=== PATIENT | male | born 1955 | race Caucasian/White ===

== ENCOUNTER 2017-01-02 15:32 | Inpatient (IN) | payer OTHER, MEDICAID ==
[~2017-01-02] VITALS: Ht 175.3 cm; Wt 72.6 kg
[2017-01-02 15:32] VITALS: BP 126/79; PULSE 106; RESP 14; TEMP 98.7; O2SAT 98
[2017-01-02] MEDS ORDERED: NACL 0.9% 1,000 ML IV SCH (15:41)
[2017-01-02] MEDS ORDERED: ONDANSETRON HCL 4 MG/2 ML VIAL IVP ONE (15:45)
[2017-01-02] MEDS ORDERED: PIPERACILLIN/TAZO 3.38 GM in D5W 50 ML IV ONE (15:45)
[2017-01-02] MEDS ORDERED: VANCOMYCIN HCL 1,000 MG in D5W 250 ML IV ONE (15:45)
[2017-01-02] MEDS ORDERED: MORPHINE 2 MG/ML INJ. SYRINGE IVP ONE (15:45)
[2017-01-02 16:22] LABS: BASOPHILS # (AUTO) 0.1 K/uL (0.0-0.2); BASOPHILS % (AUTO) 1.1 % (0.0-2.0); EOSINOPHILS # (AUTO) 0.1 K/uL (0.0-0.4); EOSINOPHILS % (AUTO) 0.8 % (0.0-4.0); HEMATOCRIT 36.9 % (36-54); HEMOGLOBIN 12.2 g/dL (14.0-18.0); LYMPHOCYTES # (AUTO) 0.9 K/uL (1.0-5.5); LYMPHOCYTES % (AUTO) 7.1 % (20.5-51.5); MEAN CORPUSCULAR HEMOGLOBIN 29 pg (27-31); MEAN CORPUSCULAR HGB CONC 33 % (32-36); MEAN CORPUSCULAR VOLUME 89 fL (79.0-98.0); MONOCYTES # (AUTO) 0.8 K/uL (0.0-1.0); MONOCYTES % (AUTO) 6.3 % (1.7-9.3); NEUTROPHILS # (AUTO) 10.9 K/uL (1.8-7.7); NEUTROPHILS % (AUTO) 84.7 % (40.0-70.0); PLATELET COUNT (AUTO) 405 K/uL (130-430); RED BLOOD CELL COUNT(AUTO) 4.15 MIL/uL (4.2-6.2); RED CELL DISTRIBUTION WIDTH 14.1 % (9.0-15.0); WHITE BLOOD COUNT (AUTO) 12.8 K/uL (4.8-10.8)
[2017-01-02 16:33] LABS: CALCIUM 9.9 mg/dL (8.4-11.0); CREATININE 1.93 mg/dL (0.55-1.30); POTASSIUM 4.5 mmol/L (3.5-5.1)
[2017-01-02 16:37] LABS: TOTAL BILIRUBIN 0.7 mg/dL (0.0-1.0)
[2017-01-02] MEDS ORDERED: VANCOMYCIN HCL 1000 MG/VIAL IV ONE (18:29)
[2017-01-02] MEDS ORDERED: PIPERACILLIN/TAZOBACTAM 3.375 GM/VIAL (ZOSYN) IV ONE (18:49)
[2017-01-02] MEDS ORDERED: ONDANSETRON HCL 4 MG/2 ML VIAL ONE (18:57)
[2017-01-02] MEDS ORDERED: MORPHINE 2 MG/ML INJ. SYRINGE ONE (18:57)
[2017-01-02] MEDS ORDERED: DEXTROSE 50% JECT 50 ML DISP.SYRIN IVP PRN (19:15)
[2017-01-02] MEDS ORDERED: NACL 0.9% 1,000 ML IV ONE ×2 (19:15)
[2017-01-02] MEDS ORDERED: ONDANSETRON HCL 4 MG/2 ML VIAL IVP PRN (19:30)
[2017-01-02 19:41] VITALS: BP 151/97; PULSE 103; RESP 20; TEMP 98.8; O2SAT 96
[2017-01-02 20:18] VITALS: BP 134/78; PULSE 105; RESP 15; TEMP 99.1; O2SAT 95
[2017-01-02] MEDS ORDERED: PIPERACILLIN/TAZOBACTAM 2.25 GM in NS 50 ML IV ONE (23:00)
[2017-01-03] VITALS: BP 159/73; PULSE 91; RESP 18; TEMP 98.5; O2SAT 95
[2017-01-03] MEDS: TEMAZEPAM 15 MG CAPSULE PO SCH ×3 (00:23→23:57)
[2017-01-03] MEDS: ENOXAPARIN SODIUM 30 MG/0.3 ML SYRINGE SUBCUT SCH ×2 (00:23→21:37)
[2017-01-03 04:28] VITALS: BP 150/74; PULSE 85; RESP 18; TEMP 98.6; O2SAT 96
[2017-01-03 06:54] LABS: BASOPHILS % (AUTO) 0.3 % (0.0-2.0); EOSINOPHILS # (AUTO) 0.3 K/uL (0.0-0.4); EOSINOPHILS % (AUTO) 3.4 % (0.0-4.0); HEMOGLOBIN 10.8 g/dL (14.0-18.0); LYMPHOCYTES # (AUTO) 1.5 K/uL (1.0-5.5); LYMPHOCYTES % (AUTO) 14.3 % (20.5-51.5); MEAN CORPUSCULAR HEMOGLOBIN 30 pg (27-31); MEAN CORPUSCULAR HGB CONC 34 % (32-36); MEAN CORPUSCULAR VOLUME 89 fL (79.0-98.0); MONOCYTES # (AUTO) 1.1 K/uL (0.0-1.0); MONOCYTES % (AUTO) 10.5 % (1.7-9.3); NEUTROPHILS # (AUTO) 7.4 K/uL (1.8-7.7); NEUTROPHILS % (AUTO) 71.5 % (40.0-70.0); PLATELET COUNT (AUTO) 306 K/uL (130-430); RED CELL DISTRIBUTION WIDTH 14.3 % (9.0-15.0); WHITE BLOOD COUNT (AUTO) 10.3 K/uL (4.8-10.8)
[2017-01-03 07:10] LABS: ALBUMIN 2.5 g/dL (3.4-4.8); CALCIUM 9.5 mg/dL (8.4-11.0); CREATININE 1.47 mg/dL (0.55-1.30); POTASSIUM 3.6 mmol/L (3.5-5.1); TOTAL BILIRUBIN 0.7 mg/dL (0.0-1.0); TOTAL PROTEIN, SERUM 7.2 g/dL (6.4-8.3)
[2017-01-03 07:27] LABS: IRON (SERUM) 43 mcg/dL (59-158); TOTAL IRON BIND. CAPACITY 121 ug/dL (250-450)
[2017-01-03 10:34] VITALS: BP 158/92; PULSE 95; RESP 18; TEMP 99; O2SAT 98
[2017-01-03 12:45] VITALS: BP 149/80; PULSE 90; RESP 18; TEMP 98.7; O2SAT 98
[2017-01-03 16:00] VITALS: BP 150/91; PULSE 99; RESP 17; TEMP 96.4; O2SAT 98
[2017-01-03 19:39] VITALS: BP 134/82; PULSE 98; RESP 15; TEMP 99.2; O2SAT 94
[2017-01-03] MEDS: ACETAMINOPHEN 325 MG TABLET PO PRN (23:55)
[2017-01-04 01:24] VITALS: BP 141/85; PULSE 83; RESP 17; TEMP 98.2; O2SAT 99
[2017-01-04 04:13] VITALS: BP 139/81; PULSE 77; RESP 18; TEMP 98; O2SAT 94
[2017-01-04 06:29] LABS: BLOOD, URINE 1+ (NEGATIVE); CLARITY/URINE SL CLOUDY (CLEAR); COLOR,URINE YELLOW (YELLOW); GLUCOSE,URINE 2+ (NEGATIVE); KETONES,URINE 1+ (NEGATIVE); LEUKOCYTE ESTERASE ,URINE NEGATIVE (NEGATIVE); NITRITE, URINE NEGATIVE (NEGATIVE); PROTEIN URINE 1+ (NEGATIVE); UROBILINOGEN,URINE 0.2 (0.2-1.0)
[2017-01-04 06:42] LABS: BILIRUBIN,URINE NEGATIVE (NEGATIVE)
[2017-01-04 06:51] LABS: BACTERIA,URINE MODERATE /HPF (None Seen); URIC ACID CRYSTALS,URINE MANY /HPF (None Seen); WBC,URINE 0-3 /HPF (0-3)
[2017-01-04 06:52] LABS: MUCUS,URINE None Seen /LPF (None Seen)
[2017-01-04] MEDS: BALSAM PERU/CASTOR OIL 60 GM OINT...G. TP SCH (09:00)
[2017-01-04] MEDS ORDERED: PROPOFOL 200MG/ 20ML VIAL (DIPRIVAN) IV ONE (09:01)
[2017-01-04] MEDS ORDERED: METOCLOPRAMIDE HCL 10 MG/2 ML VIAL IVP ONE (09:01)
[2017-01-04] MEDS ORDERED: SEVOFLURANE 15 MIN GAS INH ONE (09:01)
[2017-01-04] MEDS ORDERED: fentaNYL CITRATE/PF 100 MCG/2 ML AMP IVP ONE (09:01)
[2017-01-04] MEDS ORDERED: cefTRIAXone 1 GM IVPB PREMIX 50 ML IV ONE (09:01)
[2017-01-04] MEDS ORDERED: HYDROmorphone 2 MG/ML VIAL IVP PRN (09:15)
[2017-01-04] MEDS ORDERED: LR 1,000 ML IV SCH (09:52)
[2017-01-04] MEDS ORDERED: NALBUPHINE HCL 10 MG/ML AMP IVP PRN (10:00)
[2017-01-04] MEDS ORDERED: fentaNYL CITRATE/PF 100 MCG/2 ML AMP IVP PRN (10:00)
[2017-01-04] MEDS ORDERED: ONDANSETRON HCL 4 MG/2 ML VIAL IVP PRN ×2 (10:00)
[2017-01-04] MEDS ORDERED: ePHEDrine sulfate 50 MG/ML VIAL IVP PRN (10:00)
[2017-01-04] MEDS ORDERED: DIPHENHYDRAMINE INJ 50 MG/ML VIAL IVP PRN (10:00)
[2017-01-04] MEDS ORDERED: NALOXONE HCL 0.4 MG/ML AMP (NARCAN) IVP PRN (10:00)
[2017-01-04 12:00] VITALS: BP 155/98; PULSE 79; RESP 18; TEMP 97.1; O2SAT 98
[2017-01-04 13:07] LABS: FOLATE (FOLIC ACID) 13.4 ng/mL (>3.0)
[2017-01-04 15:13] VITALS: Ht 175.3 cm; Wt 72.6 kg
[2017-01-04 16:00] VITALS: BP 141/75; PULSE 94; RESP 18; TEMP 97; O2SAT 100
[2017-01-04] MEDS: ENOXAPARIN SODIUM 30 MG/0.3 ML SYRINGE SUBCUT SCH (21:02)
[2017-01-04] MEDS: INSULIN REGULAR, HUMAN 100 UNITS/ML, 10 ML VIAL (novoLIN R) SUBCUT PRN (22:39)
[2017-01-05] VITALS: BP 116/75; PULSE 117; RESP 16; TEMP 100.8; O2SAT 90
[2017-01-05] MEDS: ACETAMINOPHEN 325 MG TABLET PO PRN (01:59)
[2017-01-05 04:00] VITALS: BP 111/76; PULSE 114; RESP 18; TEMP 98.2; O2SAT 95
[2017-01-05] MEDS: INSULIN REGULAR, HUMAN 100 UNITS/ML, 10 ML VIAL (novoLIN R) SUBCUT PRN (06:44)
[2017-01-05 06:51] LABS: BASOPHILS % (AUTO) 0.3 % (0.0-2.0); EOSINOPHILS # (AUTO) 0.3 K/uL (0.0-0.4); EOSINOPHILS % (AUTO) 3.6 % (0.0-4.0); HEMATOCRIT 30.3 % (36-54); LYMPHOCYTES # (AUTO) 1.3 K/uL (1.0-5.5); MEAN CORPUSCULAR HEMOGLOBIN 30 pg (27-31); MEAN CORPUSCULAR HGB CONC 33 % (32-36); MEAN CORPUSCULAR VOLUME 90 fL (79.0-98.0); MONOCYTES # (AUTO) 0.8 K/uL (0.0-1.0); MONOCYTES % (AUTO) 8.8 % (1.7-9.3); NEUTROPHILS # (AUTO) 6.6 K/uL (1.8-7.7); NEUTROPHILS % (AUTO) 73.3 % (40.0-70.0); PLATELET COUNT (AUTO) 238 K/uL (130-430); RED BLOOD CELL COUNT(AUTO) 3.35 MIL/uL (4.2-6.2)
[2017-01-05 06:57] LABS: ALBUMIN 2.3 g/dL (3.4-4.8); CALCIUM 8.4 mg/dL (8.4-11.0); CREATININE 1.25 mg/dL (0.55-1.30); POTASSIUM 3.4 mmol/L (3.5-5.1); TOTAL BILIRUBIN 0.4 mg/dL (0.0-1.0); TOTAL PROTEIN, SERUM 6.4 g/dL (6.4-8.3)
[2017-01-05] MEDS: BALSAM PERU/CASTOR OIL 60 GM OINT...G. TP SCH (09:00)
[2017-01-05] MEDS ORDERED: POTASSIUM CHLORIDE 20 MEQ/PKT PACKET PO ONE (12:15)
[2017-01-05] MEDS ORDERED: HYDROcodone/ACETAMIN 10-325 MG TAB PO PRN (12:30)
[2017-01-05] MEDS ORDERED: MORPHINE SULFATE 30 MG Immediate Release TABLET PO PRN (12:30)
[2017-01-05] MEDS ORDERED: DOXYCYCLINE HYCLATE 100 MG CAPSULE PO ONE (12:45)
[2017-01-05 16:00] VITALS: BP 124/75; PULSE 81; RESP 18; TEMP 97; O2SAT 95
[2017-01-05 20:05] VITALS: BP 125/86; PULSE 87; RESP 16; TEMP 98.9; O2SAT 98
[2017-01-05 20:35] VITALS: BP 125/86; PULSE 87; RESP 16; TEMP 98.9; O2SAT 98
[2017-01-05] MEDS ORDERED: VANCOMYCIN HCL 750 MG in NS 250 ML IV SCH (21:00)
[2017-01-05] MEDS ORDERED: DOXYCYCLINE HYCLATE 100 MG CAPSULE PO SCH (21:00)
== END 2017-01-05 20:55 | DRG 474 ==
LOC: SED 15:32 → SMU 19:30 → STU 19:53 → SMU 22:09
PROVIDERS: ADMIT Internal Medicine; ATTEND Internal Medicine
PROC: 0QB10ZZ Excision of Sacrum, Open Approach (ICD-10-PCS; 2017-01-04)
PROC: 0Y6J0Z3 Detachment at Left Lower Leg, Low, Open Approach (ICD-10-PCS; principal; 2017-01-04 09:00)
DX: T87.89 Other complications of amputation stump (principal); L89.154 Pressure ulcer of sacral region, stage 4; E43 Unspecified severe protein-calorie malnutrition; N17.9 Acute kidney failure, unspecified; E86.0 Dehydration; E11.9 Type 2 diabetes mellitus without complications; Z91.19 Patient's noncompliance with other medical treatment and regimen; I10 Essential (primary) hypertension; Y83.5 Amputation of limb(s) as the cause of abnormal reaction of the patient, or of later complication, without mention of misadventure at the time of the procedure; N31.9 Neuromuscular dysfunction of bladder, unspecified; Z68.23 Body mass index [BMI] 23.0-23.9, adult; D63.8 Anemia in other chronic diseases classified elsewhere; Z91.14 Patient's other noncompliance with medication regimen; E87.6 Hypokalemia; Z22.322 Carrier or suspected carrier of Methicillin resistant Staphylococcus aureus; Z89.512 Acquired absence of left leg below knee
CPT/HCPCS: 36415; 71010; 80048; 80053; 81000-TC; 82306; 82607; 82746; 82962; 83036; 83540-TC; 83550-TC; 83605; 83735-TC; 84484; 85025; 85610-TC; 85730-TC; 87040-TC; 87081; 87086; 87186-TC; 88307; 93005; 96365; 96366; 96367; 99285; J0696; J1170; J1650; J1815; J2270; J2405; J2543; J2704; J2765; J3010; J3370; J7030; J7050; J7060

== ENCOUNTER 2018-06-04 16:46 | Emergency (ER) | payer OTHER, MEDICAID ==
[~2018-06-04] VITALS: Ht 175.3 cm; Wt 72.6 kg
[2018-06-04 16:57] VITALS: BP_SYST 157
[2018-06-04 18:31] LABS: BASOPHILS % (AUTO) 0.2 % (0.0-2.0); EOSINOPHILS # (AUTO) 0.2 K/uL (0.0-0.4); EOSINOPHILS % (AUTO) 1.4 % (0.0-4.0); HEMATOCRIT 35.5 % (36-54); HEMOGLOBIN 11.8 g/dL (14.0-18.0); LYMPHOCYTES # (AUTO) 1.1 K/uL (1.0-5.5); LYMPHOCYTES % (AUTO) 9.8 % (20.5-51.5); MEAN CORPUSCULAR HEMOGLOBIN 31 pg (27-31); MEAN CORPUSCULAR HGB CONC 33 % (32-36); MEAN CORPUSCULAR VOLUME 95 fL (79.0-98.0); MONOCYTES # (AUTO) 0.9 K/uL (0.0-1.0); MONOCYTES % (AUTO) 8.1 % (1.7-9.3); NEUTROPHILS # (AUTO) 8.6 K/uL (1.8-7.7); NEUTROPHILS % (AUTO) 80.5 % (40.0-70.0); PLATELET COUNT (AUTO) 399 K/uL (130-430); RED BLOOD CELL COUNT(AUTO) 3.75 MIL/uL (4.2-6.2); RED CELL DISTRIBUTION WIDTH 12.6 % (9.0-15.0); WHITE BLOOD COUNT (AUTO) 10.8 K/uL (4.8-10.8)
[2018-06-04 18:40] LABS: CALCIUM 9.4 mg/dL (8.4-11.0); CREATININE 1.47 mg/dL (0.55-1.30); POTASSIUM 4.2 mmol/L (3.5-5.1)
[2018-06-04 18:45] LABS: TOTAL BILIRUBIN 0.7 mg/dL (0.0-1.0)
[2018-06-04] MEDS ORDERED: VANCOMYCIN HCL 1,000 MG in NS 250 ML IV ONE (19:30)
[2018-06-04] MEDS ORDERED: VANCOMYCIN HCL 1000 MG/VIAL IV ONE (19:56)
[2018-06-04] MEDS ORDERED: NACL 0.9% 1,000 ML IV ONE (21:00)
[2018-06-04 22:29] LABS: BILIRUBIN,URINE 1+ (NEGATIVE); BLOOD, URINE 1+ (NEGATIVE); CLARITY/URINE CLOUDY (CLEAR); COLOR,URINE YELLOW (YELLOW); GLUCOSE,URINE NEGATIVE (NEGATIVE); KETONES,URINE TRACE (NEGATIVE); LEUKOCYTE ESTERASE ,URINE 2+ (NEGATIVE); NITRITE, URINE NEGATIVE (NEGATIVE); PROTEIN URINE 1+ (NEGATIVE)
[2018-06-04 22:58] LABS: BACTERIA,URINE MANY /HPF (None Seen); MUCUS,URINE 1+ /LPF (None Seen); WBC,URINE 20-50 /HPF (0-3)
[2018-06-05 01:20] VITALS: BP_SYST 116
== END 2018-06-05 01:20 | disposition home or self-care (01) ==
LOC: SED 16:46
DX: L89.159 Pressure ulcer of sacral region, unspecified stage (principal); L89.899 Pressure ulcer of other site, unspecified stage; I12.9 Hypertensive chronic kidney disease with stage 1 through stage 4 chronic kidney disease, or unspecified chronic kidney disease; E11.22 Type 2 diabetes mellitus with diabetic chronic kidney disease; N18.9 Chronic kidney disease, unspecified; E87.1 Hypo-osmolality and hyponatremia; D64.9 Anemia, unspecified; Z89.512 Acquired absence of left leg below knee
CPT/HCPCS: 36415; 71045; 72131; 80053; 81000; 83605; 84484; 85025; 87040; 87070; 87086; 93005; 96365; 96366; 99285; J3370; J7030; 87186-TC

== ENCOUNTER 2018-06-20 14:11 | Inpatient (IN) | payer OTHER, MEDICAID ==
[~2018-06-20] VITALS: Ht 175.3 cm; Wt 65.8 kg
[~2018-06-20 14:11] MED LIST: BUPIVACAINE /PF 0.75% 10 ML VIAL INJ ONE; LR 1,000 ML IV.SOLN IV ONE; MIDAZOLAM HCL 5 MG/5 ML VIAL IVP ONE; NS 1000 ML IV.SOLN IV ONE; PROPOFOL 200MG/ 20ML VIAL (DIPRIVAN) IV ONE
[2018-06-20 14:25] VITALS: BP_SYST 129
[2018-06-20] MEDS ORDERED: PIPERACILLIN/TAZO 3.38 GM in D5W 50 ML IV ONE (14:45)
[2018-06-20] MEDS ORDERED: VANCOMYCIN HCL 1,000 MG in D5W 250 ML IV ONE (14:45)
[2018-06-20] MEDS ORDERED: NS 1000 ML IV.SOLN IV ONE (14:45)
[2018-06-20] MEDS ORDERED: PIPERACILLIN/TAZOBACTAM 3.375 GM/VIAL (ZOSYN) IV ONE (15:11)
[2018-06-20 15:19] LABS: EOSINOPHILS # (AUTO) 0.1 K/uL (0.0-0.4); LYMPHOCYTES # (AUTO) 1.2 K/uL (1.0-5.5); MEAN CORPUSCULAR HEMOGLOBIN 31 pg (27-31)
[2018-06-20] MEDS ORDERED: VANCOMYCIN HCL 1000 MG/VIAL IV ONE (15:22)
[2018-06-20 15:25] LABS: BASOPHILS # (AUTO) 0.1 K/uL (0.0-0.2); EOSINOPHILS % (AUTO) 1.1 % (0.0-4.0); HEMATOCRIT 35.2 % (36-54); HEMOGLOBIN 11.7 g/dL (14.0-18.0); LYMPHOCYTES % (AUTO) 10.7 % (20.5-51.5); MEAN CORPUSCULAR HGB CONC 33 % (32-36); MEAN CORPUSCULAR VOLUME 94 fL (79.0-98.0); MONOCYTES # (AUTO) 0.5 K/uL (0.0-1.0); MONOCYTES % (AUTO) 4.5 % (1.7-9.3); NEUTROPHILS # (AUTO) 9.7 K/uL (1.8-7.7); NEUTROPHILS % (AUTO) 82.7 % (40.0-70.0); PLATELET COUNT (AUTO) 441 K/uL (130-430); RED BLOOD CELL COUNT(AUTO) 3.75 MIL/uL (4.2-6.2); RED CELL DISTRIBUTION WIDTH 12.4 % (9.0-15.0); WHITE BLOOD COUNT (AUTO) 11.6 K/uL (4.8-10.8)
[2018-06-20 15:32] LABS: CALCIUM 9.4 mg/dL (8.4-11.0); CREATININE 1.19 mg/dL (0.55-1.30); POTASSIUM 4.5 mmol/L (3.5-5.1)
[2018-06-20 15:37] LABS: ALBUMIN 2.8 g/dL (3.4-4.8); TOTAL BILIRUBIN 0.7 mg/dL (0.0-1.0)
[2018-06-20 15:47] LABS: INR 1.1 (0.80-1.20); PROTHROMBIN TIME 10.8 SECS (9.5-12.5)
[2018-06-20] MEDS ORDERED: MORPHINE 2 MG/ML INJ. SYRINGE IVP ONE (17:30)
[2018-06-20] MEDS ORDERED: ONDANSETRON HCL 4 MG/2 ML VIAL IVP ONE (17:30)
[2018-06-20 17:58] VITALS: BP_SYST 134
[2018-06-20] MEDS ORDERED: BENA1TAB17 PO (19:56)
[2018-06-20] MEDS ORDERED: GLUXR500 PO (19:56)
[2018-06-20 20:00] VITALS: BP_SYST 138
[2018-06-20] MEDS ORDERED: INSULIN REGULAR, HUMAN 100 UNITS/ML, 10 ML VIAL (novoLIN R) SUBCUT PRN (20:00)
[2018-06-20 20:47] LABS: INR 1.1 (0.80-1.20); PROTHROMBIN TIME 10.9 SECS (9.5-12.5)
[2018-06-20] MEDS: VANCOMYCIN HCL 1.25 GM/NS 250 ML IV SCH (21:00)
[2018-06-20] MEDS: PIPERACILLIN/TAZO 3.375/DEX-IS 50 ML IV SCH (21:38)
[2018-06-20] MEDS: INSULIN REGULAR, HUMAN 100 UNITS/ML, 10 ML VIAL (novoLIN R) SUBCUT PRN (21:41)
[2018-06-20] MEDS: ENOXAPARIN SODIUM 30 MG/0.3 ML SYRINGE SUBCUT SCH (21:45)
[2018-06-21] MEDS: PIPERACILLIN/TAZO 3.375/DEX-IS 50 ML IV SCH ×2 (03:33→10:05)
[2018-06-21 04:39] VITALS: BP_SYST 142
[2018-06-21] MEDS ORDERED: DEXTROSE 50%-WATER 50 ML DISP.SYRIN IVP PRN ×2 (06:45)
[2018-06-21] MEDS ORDERED: GLUCOSE 15 GM GEL (in 37.5 GM TUBE) PO PRN ×2 (06:45)
[2018-06-21 08:15] VITALS: BP_SYST 138
[2018-06-21] MEDS: LISINOPRIL 10 MG TABLET (PRINIVIL) PO SCH (10:05)
[2018-06-21] MEDS: HYDROcodone/ACETAMIN 10-325 MG TAB PO PRN ×2 (10:06→23:17)
[2018-06-21] MEDS: INSULIN REGULAR, HUMAN 100 UNITS/ML, 10 ML VIAL (novoLIN R) SUBCUT PRN ×2 (11:33→20:46)
[2018-06-21 12:00] VITALS: BP_SYST 142
[2018-06-21 14:13] LABS: BILIRUBIN,URINE NEGATIVE (NEGATIVE); BLOOD, URINE 2+ (NEGATIVE); CLARITY/URINE HAZY (CLEAR); COLOR,URINE YELLOW (YELLOW); GLUCOSE,URINE NEGATIVE (NEGATIVE); KETONES,URINE NEGATIVE (NEGATIVE); LEUKOCYTE ESTERASE ,URINE 2+ (NEGATIVE); NITRITE, URINE POSITIVE (NEGATIVE); PROTEIN URINE 1+ (NEGATIVE)
[2018-06-21 14:28] LABS: BACTERIA,URINE FEW /HPF (None Seen)
[2018-06-21 14:29] LABS: MUCUS,URINE None Seen /LPF (None Seen); YEAST,URINE None Seen /HPF (None Seen)
[2018-06-21 16:30] VITALS: BP_SYST 136
[2018-06-21] MEDS: BALSAM PERU/CASTOR OIL 60 GM OINT...G. TP SCH (16:36)
[2018-06-21 20:00] VITALS: BP_SYST 105
[2018-06-21] MEDS: ENOXAPARIN SODIUM 30 MG/0.3 ML SYRINGE SUBCUT SCH (20:43)
[2018-06-21] MEDS: CEFEPIME 1 GM in D5W 50 ML IV SCH (20:44)
[2018-06-21] MEDS: VANCOMYCIN HCL 1.25 GM/NS 250 ML IV SCH (21:51)
[2018-06-22] MEDS ORDERED: TEMAZEPAM 15 MG CAPSULE PO PRN (00:30)
[2018-06-22 08:02] VITALS: BP_SYST 106
[2018-06-22] MEDS: LISINOPRIL 10 MG TABLET (PRINIVIL) PO SCH (09:39)
[2018-06-22] MEDS: CEFEPIME 1 GM in D5W 50 ML IV SCH ×2 (09:40→22:00)
[2018-06-22] MEDS: HYDROcodone/ACETAMIN 10-325 MG TAB PO PRN ×2 (09:53→17:01)
[2018-06-22] MEDS: INSULIN REGULAR, HUMAN 100 UNITS/ML, 10 ML VIAL (novoLIN R) SUBCUT PRN ×2 (11:37→17:08)
[2018-06-22] MEDS: BALSAM PERU/CASTOR OIL 60 GM OINT...G. TP SCH (13:34)
[2018-06-22 16:10] VITALS: BP_SYST 101
[2018-06-22 19:50] VITALS: BP_SYST 100
[2018-06-22] MEDS: VANCOMYCIN HCL 1.25 GM/NS 250 ML IV SCH (22:00)
[2018-06-22] MEDS: ENOXAPARIN SODIUM 30 MG/0.3 ML SYRINGE SUBCUT SCH (22:01)
[2018-06-23 01:10] VITALS: BP_SYST 96
[2018-06-23 07:03] LABS: BASOPHILS % (AUTO) 0.5 % (0.0-2.0); EOSINOPHILS # (AUTO) 0.3 K/uL (0.0-0.4); EOSINOPHILS % (AUTO) 2.9 % (0.0-4.0); HEMATOCRIT 29.6 % (36-54); HEMOGLOBIN 9.7 g/dL (14.0-18.0); LYMPHOCYTES # (AUTO) 1.4 K/uL (1.0-5.5); LYMPHOCYTES % (AUTO) 15.1 % (20.5-51.5); MEAN CORPUSCULAR HEMOGLOBIN 31 pg (27-31); MEAN CORPUSCULAR HGB CONC 33 % (32-36); MEAN CORPUSCULAR VOLUME 95 fL (79.0-98.0); MONOCYTES # (AUTO) 0.5 K/uL (0.0-1.0); MONOCYTES % (AUTO) 5.3 % (1.7-9.3); NEUTROPHILS # (AUTO) 7.2 K/uL (1.8-7.7); NEUTROPHILS % (AUTO) 76.2 % (40.0-70.0); PLATELET COUNT (AUTO) 359 K/uL (130-430); RED BLOOD CELL COUNT(AUTO) 3.13 MIL/uL (4.2-6.2); RED CELL DISTRIBUTION WIDTH 12.8 % (9.0-15.0); WHITE BLOOD COUNT (AUTO) 9.4 K/uL (4.8-10.8)
[2018-06-23 07:22] LABS: CALCIUM 8.1 mg/dL (8.4-11.0); CREATININE 1.01 mg/dL (0.55-1.30); POTASSIUM 4.5 mmol/L (3.5-5.1)
[2018-06-23 07:48] VITALS: BP_SYST 119
[2018-06-23 08:50] LABS: ERYTHROCYTE SEDIMENTATION RATE 79 MM/HR (0-15)
[2018-06-23] MEDS: LISINOPRIL 10 MG TABLET (PRINIVIL) PO SCH (08:57)
[2018-06-23] MEDS: CEFEPIME 1 GM in D5W 50 ML IV SCH (08:59)
[2018-06-23] MEDS: HYDROcodone/ACETAMIN 10-325 MG TAB PO PRN ×2 (09:14→19:58)
[2018-06-23] MEDS: INSULIN REGULAR, HUMAN 100 UNITS/ML, 10 ML VIAL (novoLIN R) SUBCUT PRN ×2 (11:39→21:26)
[2018-06-23 12:00] VITALS: BP_SYST 115
[2018-06-23] MEDS: BALSAM PERU/CASTOR OIL 60 GM OINT...G. TP SCH (15:38)
[2018-06-23] MEDS: MEROPENEM 500 MG in NS 50 ML IV SCH ×2 (15:38→21:25)
[2018-06-23] MEDS ORDERED: GENTAMICIN 100 mg/50 mL NS 50 ML IV ONE (16:00)
[2018-06-23 20:00] VITALS: BP_SYST 107
[2018-06-23] MEDS: ENOXAPARIN SODIUM 30 MG/0.3 ML SYRINGE SUBCUT SCH (21:25)
[2018-06-24] MEDS: MEROPENEM 500 MG in NS 50 ML IV SCH ×3 (06:10→21:12)
[2018-06-24] MEDS: INSULIN REGULAR, HUMAN 100 UNITS/ML, 10 ML VIAL (novoLIN R) SUBCUT PRN ×3 (06:13→16:58)
[2018-06-24 07:37] VITALS: BP_SYST 117
[2018-06-24] MEDS: LISINOPRIL 10 MG TABLET (PRINIVIL) PO SCH (08:56)
[2018-06-24] MEDS: BALSAM PERU/CASTOR OIL 60 GM OINT...G. TP SCH (08:58)
[2018-06-24] MEDS: HYDROcodone/ACETAMIN 10-325 MG TAB PO PRN ×2 (11:29→21:11)
[2018-06-24] MEDS ORDERED: HYDROcodone/ACETAMIN 10-325 MG TAB PO ONE (15:00)
[2018-06-24 16:41] VITALS: BP_SYST 96
[2018-06-24 19:48] VITALS: BP_SYST 97
[2018-06-24] MEDS: ENOXAPARIN SODIUM 30 MG/0.3 ML SYRINGE SUBCUT SCH (20:28)
[2018-06-24 23:28] VITALS: BP_SYST 132
[2018-06-25] MEDS: MEROPENEM 500 MG in NS 50 ML IV SCH ×3 (06:10→22:26)
[2018-06-25 07:19] LABS: BASOPHILS # (AUTO) 0.1 K/uL (0.0-0.2); BASOPHILS % (AUTO) 0.4 % (0.0-2.0); EOSINOPHILS # (AUTO) 0.3 K/uL (0.0-0.4); EOSINOPHILS % (AUTO) 2.5 % (0.0-4.0); HEMATOCRIT 29.4 % (36-54); HEMOGLOBIN 9.7 g/dL (14.0-18.0); LYMPHOCYTES # (AUTO) 0.9 K/uL (1.0-5.5); MEAN CORPUSCULAR HEMOGLOBIN 31 pg (27-31); MEAN CORPUSCULAR HGB CONC 33 % (32-36); MEAN CORPUSCULAR VOLUME 95 fL (79.0-98.0); MONOCYTES # (AUTO) 0.7 K/uL (0.0-1.0); MONOCYTES % (AUTO) 5.7 % (1.7-9.3); NEUTROPHILS # (AUTO) 11.1 K/uL (1.8-7.7); NEUTROPHILS % (AUTO) 84.4 % (40.0-70.0); PLATELET COUNT (AUTO) 371 K/uL (130-430); RED BLOOD CELL COUNT(AUTO) 3.09 MIL/uL (4.2-6.2); RED CELL DISTRIBUTION WIDTH 12.7 % (9.0-15.0); WHITE BLOOD COUNT (AUTO) 13.1 K/uL (4.8-10.8)
[2018-06-25 07:28] LABS: PROTHROMBIN TIME 10.2 SECS (9.5-12.5)
[2018-06-25 08:18] LABS: ALBUMIN 2.1 g/dL (3.4-4.8); CALCIUM 8.7 mg/dL (8.4-11.0); CREATININE 1.29 mg/dL (0.55-1.30); POTASSIUM 5.5 mmol/L (3.5-5.1); TOTAL BILIRUBIN 0.2 mg/dL (0.0-1.0)
[2018-06-25 08:38] VITALS: BP_SYST 116
[2018-06-25] MEDS: BALSAM PERU/CASTOR OIL 60 GM OINT...G. TP SCH (09:00)
[2018-06-25] MEDS: LISINOPRIL 10 MG TABLET (PRINIVIL) PO SCH (09:00)
[2018-06-25] MEDS ORDERED: ONDANSETRON HCL 4 MG/2 ML VIAL IVP PRN (13:15)
[2018-06-25] MEDS ORDERED: fentaNYL CITRATE/PF 100 MCG/2 ML AMP IVP PRN (13:15)
[2018-06-25] MEDS: INSULIN REGULAR, HUMAN 100 UNITS/ML, 10 ML VIAL (novoLIN R) SUBCUT PRN ×2 (17:35→22:29)
[2018-06-25] MEDS: HYDROcodone/ACETAMIN 10-325 MG TAB PO PRN (18:31)
[2018-06-25 20:00] VITALS: BP_SYST 109
[2018-06-25] MEDS: ENOXAPARIN SODIUM 30 MG/0.3 ML SYRINGE SUBCUT SCH (22:27)
[2018-06-26] MEDS: HYDROcodone/ACETAMIN 10-325 MG TAB PO PRN ×2 (01:28→10:25)
[2018-06-26 06:14] LABS: BASOPHILS # (AUTO) 0.1 K/uL (0.0-0.2); BASOPHILS % (AUTO) 0.9 % (0.0-2.0); EOSINOPHILS # (AUTO) 0.3 K/uL (0.0-0.4); EOSINOPHILS % (AUTO) 3.7 % (0.0-4.0); HEMATOCRIT 27.1 % (36-54); HEMOGLOBIN 8.9 g/dL (14.0-18.0); LYMPHOCYTES # (AUTO) 1.6 K/uL (1.0-5.5); LYMPHOCYTES % (AUTO) 18.1 % (20.5-51.5); MEAN CORPUSCULAR HEMOGLOBIN 31 pg (27-31); MEAN CORPUSCULAR HGB CONC 33 % (32-36); MEAN CORPUSCULAR VOLUME 96 fL (79.0-98.0); MONOCYTES # (AUTO) 0.7 K/uL (0.0-1.0); MONOCYTES % (AUTO) 7.6 % (1.7-9.3); NEUTROPHILS # (AUTO) 5.9 K/uL (1.8-7.7); NEUTROPHILS % (AUTO) 69.7 % (40.0-70.0); PLATELET COUNT (AUTO) 307 K/uL (130-430); RED BLOOD CELL COUNT(AUTO) 2.84 MIL/uL (4.2-6.2); RED CELL DISTRIBUTION WIDTH 12.9 % (9.0-15.0)
[2018-06-26] MEDS: MEROPENEM 500 MG in NS 50 ML IV SCH ×3 (06:18→22:32)
[2018-06-26] MEDS: INSULIN REGULAR, HUMAN 100 UNITS/ML, 10 ML VIAL (novoLIN R) SUBCUT PRN ×2 (06:20→16:41)
[2018-06-26 07:04] LABS: WHITE BLOOD COUNT (AUTO) 8.6 K/uL (4.8-10.8)
[2018-06-26 07:30] LABS: CALCIUM 8.2 mg/dL (8.4-11.0); CREATININE 1.16 mg/dL (0.55-1.30); POTASSIUM 5.1 mmol/L (3.5-5.1); TOTAL BILIRUBIN 0.2 mg/dL (0.0-1.0)
[2018-06-26 08:20] VITALS: BP_SYST 154
[2018-06-26] MEDS: BALSAM PERU/CASTOR OIL 60 GM OINT...G. TP SCH (08:55)
[2018-06-26] MEDS: LISINOPRIL 10 MG TABLET (PRINIVIL) PO SCH (08:55)
[2018-06-26 12:33] VITALS: BP_SYST 143
[2018-06-26] MEDS: AMIKACIN SULFATE 500 MG in D5W 100 ML IV SCH (13:36)
[2018-06-26 16:04] VITALS: BP_SYST 131
[2018-06-26] MEDS: ENOXAPARIN SODIUM 30 MG/0.3 ML SYRINGE SUBCUT SCH (20:45)
[2018-06-27] MEDS: AMIKACIN SULFATE 500 MG in D5W 100 ML IV SCH ×2 (02:44→14:12)
[2018-06-27] MEDS: MEROPENEM 500 MG in NS 50 ML IV SCH ×3 (06:33→21:26)
[2018-06-27 08:30] VITALS: BP_SYST 128
[2018-06-27] MEDS: LISINOPRIL 10 MG TABLET (PRINIVIL) PO SCH (08:38)
[2018-06-27] MEDS: HYDROcodone/ACETAMIN 10-325 MG TAB PO PRN ×2 (08:38→21:39)
[2018-06-27] MEDS: BALSAM PERU/CASTOR OIL 60 GM OINT...G. TP SCH (08:39)
[2018-06-27] MEDS ORDERED: MAGNESIUM CITRATE 300 ML ORAL SOLUTION PO ONE (10:15)
[2018-06-27 16:36] VITALS: BP_SYST 122
[2018-06-27] MEDS: INSULIN REGULAR, HUMAN 100 UNITS/ML, 10 ML VIAL (novoLIN R) SUBCUT PRN (17:14)
[2018-06-27] MEDS: ENOXAPARIN SODIUM 30 MG/0.3 ML SYRINGE SUBCUT SCH (21:00)
[2018-06-28] MEDS: AMIKACIN SULFATE 500 MG in D5W 100 ML IV SCH ×2 (01:17→14:16)
[2018-06-28] MEDS: MEROPENEM 500 MG in NS 50 ML IV SCH ×3 (05:32→21:29)
[2018-06-28] MEDS: BALSAM PERU/CASTOR OIL 60 GM OINT...G. TP SCH (08:28)
[2018-06-28] MEDS: LISINOPRIL 10 MG TABLET (PRINIVIL) PO SCH (08:28)
[2018-06-28] MEDS ORDERED: ONDANSETRON HCL 4 MG/2 ML VIAL IVP PRN (12:15)
[2018-06-28] MEDS ORDERED: fentaNYL CITRATE/PF 100 MCG/2 ML AMP IVP PRN ×2 (12:15)
[2018-06-28 12:50] VITALS: BP_SYST 136
[2018-06-28] MEDS ORDERED: ROCURONIUM BROMIDE 10 MG/ML (ZEMURON) ONE (13:25)
[2018-06-28] MEDS ORDERED: GLYCOPYRROLATE 0.2 MG/ML VIAL ONE (13:25)
[2018-06-28] MEDS ORDERED: PROPOFOL 200MG/ 20ML VIAL (DIPRIVAN) IV ONE (13:25)
[2018-06-28] MEDS ORDERED: NS IRRIG SOLN 1000 ML IR ONE (13:25)
[2018-06-28] MEDS ORDERED: NEOSTIGMINE METHYLSULFATE 1 MG/ML, 10 ML VIAL ONE (13:25)
[2018-06-28] MEDS ORDERED: SEVOFLURANE 15 MIN GAS INH ONE (13:25)
[2018-06-28] MEDS ORDERED: PHENYLEPHRINE HCL 10 MG/ML VIAL (NEOSYNEPHRINE) ONE (13:25)
[2018-06-28] MEDS ORDERED: LR 1,000 ML IV.SOLN IV ONE (13:25)
[2018-06-28] MEDS ORDERED: fentaNYL CITRATE/PF 100 MCG/2 ML AMP ONE (13:25)
[2018-06-28] MEDS ORDERED: MIDAZOLAM HCL 5 MG/ML VIAL (VERSED) IV ONE (13:25)
[2018-06-28] MEDS: HYDROcodone/ACETAMIN 10-325 MG TAB PO PRN (14:17)
[2018-06-28] MEDS: ENOXAPARIN SODIUM 30 MG/0.3 ML SYRINGE SUBCUT SCH (21:00)
[2018-06-29] MEDS: HYDROcodone/ACETAMIN 10-325 MG TAB PO PRN ×3 (00:04→22:48)
[2018-06-29] MEDS: AMIKACIN SULFATE 500 MG in D5W 100 ML IV SCH ×2 (00:06→13:22)
[2018-06-29 00:33] VITALS: BP_SYST 99
[2018-06-29] MEDS: MEROPENEM 500 MG in NS 50 ML IV SCH ×3 (05:23→21:15)
[2018-06-29 08:00] VITALS: BP_SYST 132
[2018-06-29] MEDS: LISINOPRIL 10 MG TABLET (PRINIVIL) PO SCH (10:29)
[2018-06-29 12:20] VITALS: BP_SYST 143
[2018-06-29 16:20] VITALS: BP_SYST 133
[2018-06-29] MEDS: BALSAM PERU/CASTOR OIL 60 GM OINT...G. TP SCH (17:00)
[2018-06-29 20:00] VITALS: BP_SYST 128
[2018-06-29] MEDS: ENOXAPARIN SODIUM 30 MG/0.3 ML SYRINGE SUBCUT SCH (20:24)
[2018-06-30] MEDS: AMIKACIN SULFATE 500 MG in D5W 100 ML IV SCH ×2 (00:28→12:44)
[2018-06-30] MEDS: MEROPENEM 500 MG in NS 50 ML IV SCH ×3 (05:04→21:54)
[2018-06-30] MEDS: INSULIN REGULAR, HUMAN 100 UNITS/ML, 10 ML VIAL (novoLIN R) SUBCUT PRN ×2 (06:20→11:34)
[2018-06-30 08:02] VITALS: BP_SYST 112
[2018-06-30] MEDS: BALSAM PERU/CASTOR OIL 60 GM OINT...G. TP SCH (09:00)
[2018-06-30] MEDS: LISINOPRIL 10 MG TABLET (PRINIVIL) PO SCH (09:50)
[2018-06-30] MEDS: HYDROcodone/ACETAMIN 10-325 MG TAB PO PRN (09:50)
[2018-06-30 10:20] LABS: BASOPHILS % (AUTO) 0.5 % (0.0-2.0); EOSINOPHILS # (AUTO) 0.4 K/uL (0.0-0.4); EOSINOPHILS % (AUTO) 5.1 % (0.0-4.0); HEMATOCRIT 29.3 % (36-54); HEMOGLOBIN 9.6 g/dL (14.0-18.0); LYMPHOCYTES # (AUTO) 1.1 K/uL (1.0-5.5); LYMPHOCYTES % (AUTO) 14.3 % (20.5-51.5); MEAN CORPUSCULAR HEMOGLOBIN 31 pg (27-31); MEAN CORPUSCULAR HGB CONC 33 % (32-36); MEAN CORPUSCULAR VOLUME 95 fL (79.0-98.0); MONOCYTES # (AUTO) 0.6 K/uL (0.0-1.0); MONOCYTES % (AUTO) 7.2 % (1.7-9.3); NEUTROPHILS # (AUTO) 5.6 K/uL (1.8-7.7); NEUTROPHILS % (AUTO) 72.9 % (40.0-70.0); PLATELET COUNT (AUTO) 360 K/uL (130-430); RED BLOOD CELL COUNT(AUTO) 3.08 MIL/uL (4.2-6.2); RED CELL DISTRIBUTION WIDTH 13.3 % (9.0-15.0); WHITE BLOOD COUNT (AUTO) 7.7 K/uL (4.8-10.8)
[2018-06-30 10:32] LABS: CALCIUM 8.7 mg/dL (8.4-11.0); CREATININE 1.18 mg/dL (0.55-1.30); POTASSIUM 5.5 mmol/L (3.5-5.1)
[2018-06-30 10:38] LABS: ALBUMIN 2.2 g/dL (3.4-4.8); TOTAL BILIRUBIN 0.4 mg/dL (0.0-1.0)
[2018-06-30 11:46] VITALS: BP_SYST 112
[2018-06-30 20:30] VITALS: BP_SYST 127
[2018-06-30] MEDS: ENOXAPARIN SODIUM 30 MG/0.3 ML SYRINGE SUBCUT SCH (21:00)
[2018-07-01] MEDS: MEROPENEM 500 MG in NS 50 ML IV SCH ×3 (06:00→21:42)
[2018-07-01] MEDS: INSULIN REGULAR, HUMAN 100 UNITS/ML, 10 ML VIAL (novoLIN R) SUBCUT PRN ×2 (06:07→11:32)
[2018-07-01 08:02] VITALS: BP_SYST 136
[2018-07-01] MEDS: HYDROcodone/ACETAMIN 10-325 MG TAB PO PRN ×2 (08:52→18:14)
[2018-07-01] MEDS: LISINOPRIL 10 MG TABLET (PRINIVIL) PO SCH (08:52)
[2018-07-01] MEDS: AMIKACIN SULFATE 500 MG in D5W 100 ML IV SCH (08:54)
[2018-07-01] MEDS: BALSAM PERU/CASTOR OIL 60 GM OINT...G. TP SCH (09:00)
[2018-07-01 12:00] VITALS: BP_SYST 125
[2018-07-01 16:00] VITALS: BP_SYST 129
[2018-07-01 17:00] VITALS: BP_SYST 129
[2018-07-01 19:00] VITALS: BP_SYST 117
[2018-07-01 20:00] VITALS: BP_SYST 117
[2018-07-01] MEDS: SIMETHICONE 80 MG TAB.CHEW PO SCH (21:37)
[2018-07-01] MEDS: ENOXAPARIN SODIUM 30 MG/0.3 ML SYRINGE SUBCUT SCH (21:39)
[2018-07-02 01:40] VITALS: BP_SYST 107
[2018-07-02] MEDS: HYDROcodone/ACETAMIN 10-325 MG TAB PO PRN ×4 (02:30→21:09)
[2018-07-02] MEDS: MEROPENEM 500 MG in NS 50 ML IV SCH ×3 (05:57→21:13)
[2018-07-02] MEDS: LISINOPRIL 10 MG TABLET (PRINIVIL) PO SCH (08:39)
[2018-07-02] MEDS: SIMETHICONE 80 MG TAB.CHEW PO SCH ×3 (08:40→21:00)
[2018-07-02 08:41] VITALS: BP_SYST 122
[2018-07-02] MEDS: AMIKACIN SULFATE 500 MG in D5W 100 ML IV SCH (09:22)
[2018-07-02 12:32] VITALS: BP_SYST 124
[2018-07-02] MEDS: INSULIN REGULAR, HUMAN 100 UNITS/ML, 10 ML VIAL (novoLIN R) SUBCUT PRN (12:47)
[2018-07-02] MEDS: BALSAM PERU/CASTOR OIL 60 GM OINT...G. TP SCH (14:53)
[2018-07-02 19:00] VITALS: BP_SYST 151
[2018-07-02 20:00] VITALS: BP_SYST 151
[2018-07-02] MEDS: ENOXAPARIN SODIUM 30 MG/0.3 ML SYRINGE SUBCUT SCH (21:00)
[2018-07-03 00:44] VITALS: BP_SYST 123
[2018-07-03] MEDS: HYDROcodone/ACETAMIN 10-325 MG TAB PO PRN ×4 (03:59→23:08)
[2018-07-03] MEDS: MEROPENEM 500 MG in NS 50 ML IV SCH ×3 (05:51→23:06)
[2018-07-03 08:00] VITALS: BP_SYST 113
[2018-07-03] MEDS: SIMETHICONE 80 MG TAB.CHEW PO SCH ×3 (09:00→21:00)
[2018-07-03] MEDS: BALSAM PERU/CASTOR OIL 60 GM OINT...G. TP SCH (09:08)
[2018-07-03] MEDS: LISINOPRIL 10 MG TABLET (PRINIVIL) PO SCH (09:08)
[2018-07-03 11:31] VITALS: BP_SYST 140
[2018-07-03 21:00] VITALS: BP_SYST 141
[2018-07-03] MEDS: ENOXAPARIN SODIUM 30 MG/0.3 ML SYRINGE SUBCUT SCH (23:08)
[2018-07-04 00:11] VITALS: BP_SYST 123
[2018-07-04] MEDS: MEROPENEM 500 MG in NS 50 ML IV SCH ×3 (06:53→21:13)
[2018-07-04] MEDS: BALSAM PERU/CASTOR OIL 60 GM OINT...G. TP SCH (09:00)
[2018-07-04] MEDS: LISINOPRIL 10 MG TABLET (PRINIVIL) PO SCH (09:00)
[2018-07-04] MEDS: SIMETHICONE 80 MG TAB.CHEW PO SCH ×3 (09:00→21:12)
[2018-07-04] MEDS: HYDROcodone/ACETAMIN 10-325 MG TAB PO PRN ×2 (11:15→20:14)
[2018-07-04 12:00] VITALS: BP_SYST 129
[2018-07-04 16:00] VITALS: BP_SYST 123; BP_SYST 129
[2018-07-04] MEDS: INSULIN REGULAR, HUMAN 100 UNITS/ML, 10 ML VIAL (novoLIN R) SUBCUT PRN (21:14)
[2018-07-04] MEDS: ENOXAPARIN SODIUM 30 MG/0.3 ML SYRINGE SUBCUT SCH (21:16)
[2018-07-04 21:37] VITALS: BP_SYST 125
[2018-07-04 23:59] VITALS: BP_SYST 119
[2018-07-05] MEDS: HYDROcodone/ACETAMIN 10-325 MG TAB PO PRN ×2 (02:10→20:03)
[2018-07-05] MEDS: MEROPENEM 500 MG in NS 50 ML IV SCH (06:04)
[2018-07-05] MEDS: INSULIN REGULAR, HUMAN 100 UNITS/ML, 10 ML VIAL (novoLIN R) SUBCUT PRN (06:04)
[2018-07-05 08:02] VITALS: BP_SYST 124
[2018-07-05] MEDS: SIMETHICONE 80 MG TAB.CHEW PO SCH ×3 (09:00→20:03)
[2018-07-05] MEDS: LISINOPRIL 10 MG TABLET (PRINIVIL) PO SCH (09:00)
[2018-07-05] MEDS: BALSAM PERU/CASTOR OIL 60 GM OINT...G. TP SCH (09:00)
[2018-07-05 12:00] VITALS: BP_SYST 128
[2018-07-05] MEDS ORDERED: LEVOFLOXACIN 500 MG/D5W 100 ML IV ONE (12:00)
[2018-07-05] MEDS: GENTAMICIN 120 MG/ ISO-OSM 100 ML PREMIX IV SCH (13:00)
[2018-07-05] MEDS ORDERED: fentaNYL CITRATE/PF 100 MCG/2 ML AMP IVP PRN ×2 (13:30)
[2018-07-05] MEDS ORDERED: ONDANSETRON HCL 4 MG/2 ML VIAL IVP PRN (13:30)
[2018-07-05] MEDS ORDERED: BUPIVACAINE /DEX PF 0.75% SPINAL 2 ML AMP INJ ONE (14:00)
[2018-07-05] MEDS ORDERED: MIDAZOLAM HCL 5 MG/ML VIAL (VERSED) IV ONE (14:00)
[2018-07-05] MEDS ORDERED: NS IRRIG SOLN 1000 ML IR ONE (14:00)
[2018-07-05] MEDS ORDERED: BACITRACIN 1 GM OINT TP ONE (14:00)
[2018-07-05] MEDS ORDERED: NS 1000 ML IV.SOLN IV ONE (14:00)
[2018-07-05 19:20] VITALS: BP_SYST 127
[2018-07-05] MEDS: ENOXAPARIN SODIUM 30 MG/0.3 ML SYRINGE SUBCUT SCH (20:04)
[2018-07-06 07:22] LABS: CALCIUM 8.6 mg/dL (8.4-11.0); CREATININE 1.17 mg/dL (0.55-1.30); POTASSIUM 5.5 mmol/L (3.5-5.1)
[2018-07-06 07:28] LABS: BASOPHILS % (AUTO) 0.4 % (0.0-2.0); EOSINOPHILS # (AUTO) 0.5 K/uL (0.0-0.4); EOSINOPHILS % (AUTO) 5.9 % (0.0-4.0); HEMATOCRIT 26.8 % (36-54); LYMPHOCYTES # (AUTO) 1.3 K/uL (1.0-5.5); MEAN CORPUSCULAR HEMOGLOBIN 32 pg (27-31); MEAN CORPUSCULAR HGB CONC 34 % (32-36); MEAN CORPUSCULAR VOLUME 95 fL (79.0-98.0); MONOCYTES # (AUTO) 0.5 K/uL (0.0-1.0); MONOCYTES % (AUTO) 6.3 % (1.7-9.3); NEUTROPHILS # (AUTO) 5.8 K/uL (1.8-7.7); NEUTROPHILS % (AUTO) 71.4 % (40.0-70.0); PLATELET COUNT (AUTO) 316 K/uL (130-430); RED BLOOD CELL COUNT(AUTO) 2.82 MIL/uL (4.2-6.2); RED CELL DISTRIBUTION WIDTH 13.4 % (9.0-15.0); WHITE BLOOD COUNT (AUTO) 8.1 K/uL (4.8-10.8)
[2018-07-06 08:49] VITALS: BP_SYST 127
[2018-07-06] MEDS: SIMETHICONE 80 MG TAB.CHEW PO SCH ×3 (09:00→20:50)
[2018-07-06] MEDS: BALSAM PERU/CASTOR OIL 60 GM OINT...G. TP SCH (09:00)
[2018-07-06] MEDS: LISINOPRIL 10 MG TABLET (PRINIVIL) PO SCH ×2 (09:00→11:07)
[2018-07-06] MEDS: LEVOFLOXACIN 500 MG/D5W 100 ML IV SCH (11:07)
[2018-07-06] MEDS: HYDROcodone/ACETAMIN 10-325 MG TAB PO PRN ×3 (11:07→22:58)
[2018-07-06 11:10] VITALS: BP_SYST 150
[2018-07-06] MEDS: GENTAMICIN 120 MG/ ISO-OSM 100 ML PREMIX IV SCH (12:32)
[2018-07-06 16:17] VITALS: BP_SYST 124
[2018-07-06 20:00] VITALS: BP_SYST 136
[2018-07-06] MEDS: INSULIN REGULAR, HUMAN 100 UNITS/ML, 10 ML VIAL (novoLIN R) SUBCUT PRN (20:51)
[2018-07-06] MEDS: ENOXAPARIN SODIUM 30 MG/0.3 ML SYRINGE SUBCUT SCH (20:55)
[2018-07-07 00:22] VITALS: BP_SYST 111
[2018-07-07 08:00] VITALS: BP_SYST 131
[2018-07-07] MEDS: SIMETHICONE 80 MG TAB.CHEW PO SCH ×3 (08:56→20:53)
[2018-07-07] MEDS: LISINOPRIL 10 MG TABLET (PRINIVIL) PO SCH (08:56)
[2018-07-07] MEDS: LEVOFLOXACIN 500 MG/D5W 100 ML IV SCH (08:56)
[2018-07-07] MEDS: HYDROcodone/ACETAMIN 10-325 MG TAB PO PRN (12:46)
[2018-07-07] MEDS: BALSAM PERU/CASTOR OIL 60 GM OINT...G. TP SCH (12:47)
[2018-07-07] MEDS: GENTAMICIN 120 MG/ ISO-OSM 100 ML PREMIX IV SCH (12:47)
[2018-07-07 16:28] VITALS: BP_SYST 144
[2018-07-07] MEDS: ENOXAPARIN SODIUM 30 MG/0.3 ML SYRINGE SUBCUT SCH (20:53)
[2018-07-08] MEDS: HYDROcodone/ACETAMIN 10-325 MG TAB PO PRN ×4 (02:59→21:22)
[2018-07-08 03:08] VITALS: BP_SYST 129
[2018-07-08 08:00] VITALS: BP_SYST 129
[2018-07-08] MEDS: SIMETHICONE 80 MG TAB.CHEW PO SCH ×3 (09:00→21:08)
[2018-07-08] MEDS: LEVOFLOXACIN 500 MG/D5W 100 ML IV SCH (09:05)
[2018-07-08] MEDS: LISINOPRIL 10 MG TABLET (PRINIVIL) PO SCH (09:06)
[2018-07-08] MEDS: BALSAM PERU/CASTOR OIL 60 GM OINT...G. TP SCH (09:07)
[2018-07-08] MEDS: GENTAMICIN 120 MG/ ISO-OSM 100 ML PREMIX IV SCH (12:31)
[2018-07-08 16:20] VITALS: BP_SYST 130
[2018-07-08 20:00] VITALS: BP_SYST 121
[2018-07-08] MEDS: ENOXAPARIN SODIUM 30 MG/0.3 ML SYRINGE SUBCUT SCH (21:15)
[2018-07-08] MEDS: INSULIN REGULAR, HUMAN 100 UNITS/ML, 10 ML VIAL (novoLIN R) SUBCUT PRN (21:17)
[2018-07-09 00:13] VITALS: BP_SYST 106
[2018-07-09] MEDS: SIMETHICONE 80 MG TAB.CHEW PO SCH ×4 (09:00→20:26)
[2018-07-09] MEDS: LEVOFLOXACIN 500 MG/D5W 100 ML IV SCH (11:43)
[2018-07-09] MEDS: BALSAM PERU/CASTOR OIL 60 GM OINT...G. TP SCH (11:44)
[2018-07-09] MEDS: LISINOPRIL 10 MG TABLET (PRINIVIL) PO SCH (11:52)
[2018-07-09] MEDS: HYDROcodone/ACETAMIN 10-325 MG TAB PO PRN ×2 (12:01→20:40)
[2018-07-09] MEDS: GENTAMICIN 120 MG/ ISO-OSM 100 ML PREMIX IV SCH (13:44)
[2018-07-09 15:06] VITALS: BP_SYST 142
[2018-07-09 15:12] VITALS: BP_SYST 138
[2018-07-09 20:22] VITALS: BP_SYST 120
[2018-07-09] MEDS: ENOXAPARIN SODIUM 30 MG/0.3 ML SYRINGE SUBCUT SCH (20:26)
[2018-07-10 08:31] LABS: CALCIUM 8.6 mg/dL (8.4-11.0); CREATININE 1.37 mg/dL (0.55-1.30); POTASSIUM 4.8 mmol/L (3.5-5.1)
[2018-07-10 08:41] LABS: BASOPHILS % (AUTO) 0.3 % (0.0-2.0); EOSINOPHILS # (AUTO) 0.5 K/uL (0.0-0.4); HEMATOCRIT 24.5 % (36-54); HEMOGLOBIN 8.4 g/dL (14.0-18.0); LYMPHOCYTES % (AUTO) 11.3 % (20.5-51.5); MEAN CORPUSCULAR HEMOGLOBIN 33 pg (27-31); MEAN CORPUSCULAR HGB CONC 34 % (32-36); MEAN CORPUSCULAR VOLUME 95 fL (79.0-98.0); MONOCYTES # (AUTO) 0.7 K/uL (0.0-1.0); MONOCYTES % (AUTO) 7.5 % (1.7-9.3); NEUTROPHILS # (AUTO) 6.8 K/uL (1.8-7.7); NEUTROPHILS % (AUTO) 74.9 % (40.0-70.0); PLATELET COUNT (AUTO) 346 K/uL (130-430); RED BLOOD CELL COUNT(AUTO) 2.59 MIL/uL (4.2-6.2); RED CELL DISTRIBUTION WIDTH 13.1 % (9.0-15.0)
[2018-07-10] MEDS: SIMETHICONE 80 MG TAB.CHEW PO SCH ×3 (09:37→21:00)
[2018-07-10] MEDS: LEVOFLOXACIN 500 MG/D5W 100 ML IV SCH (09:37)
[2018-07-10] MEDS: LISINOPRIL 10 MG TABLET (PRINIVIL) PO SCH (09:41)
[2018-07-10] MEDS: HYDROcodone/ACETAMIN 10-325 MG TAB PO PRN ×3 (09:48→22:21)
[2018-07-10] MEDS: BALSAM PERU/CASTOR OIL 60 GM OINT...G. TP SCH (09:51)
[2018-07-10 12:00] VITALS: BP_SYST 127
[2018-07-10] MEDS: GENTAMICIN 120 MG/ ISO-OSM 100 ML PREMIX IV SCH (12:02)
[2018-07-10 16:21] VITALS: BP_SYST 138
[2018-07-10] MEDS: ENOXAPARIN SODIUM 30 MG/0.3 ML SYRINGE SUBCUT SCH (21:00)
[2018-07-11 00:14] VITALS: BP_SYST 112
[2018-07-11 08:00] VITALS: BP_SYST 139
[2018-07-11] MEDS ORDERED: LEVOFLOXACIN 500 MG/D5W 100 ML IV SCH (09:00)
[2018-07-11] MEDS: BALSAM PERU/CASTOR OIL 60 GM OINT...G. TP SCH (09:00)
[2018-07-11] MEDS: LISINOPRIL 10 MG TABLET (PRINIVIL) PO SCH (09:15)
[2018-07-11] MEDS: SIMETHICONE 80 MG TAB.CHEW PO SCH ×3 (09:15→20:34)
[2018-07-11] MEDS: HYDROcodone/ACETAMIN 10-325 MG TAB PO PRN ×3 (09:15→23:28)
[2018-07-11 12:41] VITALS: BP_SYST 126
[2018-07-11] MEDS: GENTAMICIN 80 MG/ ISO-OSM 100 ML PREMIX IV SCH (13:44)
[2018-07-11 16:17] VITALS: BP_SYST 119
[2018-07-11 20:00] VITALS: BP_SYST 138
[2018-07-11] MEDS: ENOXAPARIN SODIUM 30 MG/0.3 ML SYRINGE SUBCUT SCH (20:35)
[2018-07-12] MEDS: BALSAM PERU/CASTOR OIL 60 GM OINT...G. TP SCH ×2 (00:15→09:00)
[2018-07-12 01:39] VITALS: BP_SYST 116
[2018-07-12] MEDS: INSULIN REGULAR, HUMAN 100 UNITS/ML, 10 ML VIAL (novoLIN R) SUBCUT PRN (06:44)
[2018-07-12] MEDS: SIMETHICONE 80 MG TAB.CHEW PO SCH ×4 (09:00→22:12)
[2018-07-12 09:18] VITALS: BP_SYST 130
[2018-07-12] MEDS: LISINOPRIL 10 MG TABLET (PRINIVIL) PO SCH (09:25)
[2018-07-12] MEDS: HYDROcodone/ACETAMIN 10-325 MG TAB PO PRN ×2 (09:32→20:10)
[2018-07-12 12:00] VITALS: BP_SYST 98
[2018-07-12] MEDS: GENTAMICIN 80 MG/ ISO-OSM 100 ML PREMIX IV SCH (14:37)
[2018-07-12 16:25] VITALS: BP_SYST 127
[2018-07-12 20:11] VITALS: BP_SYST 133
[2018-07-12] MEDS: ENOXAPARIN SODIUM 30 MG/0.3 ML SYRINGE SUBCUT SCH (22:13)
[2018-07-13 08:30] VITALS: BP_SYST 131
[2018-07-13] MEDS: SIMETHICONE 80 MG TAB.CHEW PO SCH ×3 (09:02→21:00)
[2018-07-13] MEDS: HYDROcodone/ACETAMIN 10-325 MG TAB PO PRN ×3 (09:04→21:31)
[2018-07-13] MEDS: BALSAM PERU/CASTOR OIL 60 GM OINT...G. TP SCH (09:06)
[2018-07-13] MEDS: LISINOPRIL 10 MG TABLET (PRINIVIL) PO SCH (09:07)
[2018-07-13 10:27] VITALS: BP_SYST 131
[2018-07-13] MEDS: GENTAMICIN 80 MG/ ISO-OSM 100 ML PREMIX IV SCH (13:12)
[2018-07-13 16:06] VITALS: BP_SYST 99
[2018-07-13 19:00] VITALS: BP_SYST 105
[2018-07-13 20:00] VITALS: BP_SYST 105
[2018-07-13] MEDS: ENOXAPARIN SODIUM 30 MG/0.3 ML SYRINGE SUBCUT SCH (21:00)
[2018-07-14] VITALS: BP_SYST 120
[2018-07-14 08:00] VITALS: BP_SYST 125
[2018-07-14] MEDS: BALSAM PERU/CASTOR OIL 60 GM OINT...G. TP SCH (08:29)
[2018-07-14] MEDS: SIMETHICONE 80 MG TAB.CHEW PO SCH ×3 (08:29→21:00)
[2018-07-14] MEDS: LISINOPRIL 10 MG TABLET (PRINIVIL) PO SCH (08:29)
[2018-07-14] MEDS: HYDROcodone/ACETAMIN 10-325 MG TAB PO PRN (10:44)
[2018-07-14 11:23] VITALS: BP_SYST 114
[2018-07-14 13:05] LABS: ALBUMIN 2.4 g/dL (3.4-4.8); CALCIUM 8.7 mg/dL (8.4-11.0); CREATININE 1.57 mg/dL (0.55-1.30); POTASSIUM 5.1 mmol/L (3.5-5.1); TOTAL BILIRUBIN 0.3 mg/dL (0.0-1.0)
[2018-07-14] MEDS: GENTAMICIN 80 MG/ ISO-OSM 100 ML PREMIX IV SCH (13:15)
[2018-07-14] MEDS ORDERED: GENTAMICIN 100 mg/50 mL NS 50 ML IV SCH (15:06)
[2018-07-14 16:06] VITALS: BP_SYST 103
[2018-07-14 20:00] VITALS: BP_SYST 118
[2018-07-14] MEDS: ENOXAPARIN SODIUM 30 MG/0.3 ML SYRINGE SUBCUT SCH (21:00)
[2018-07-15 01:08] VITALS: BP_SYST 127
[2018-07-15 08:04] VITALS: BP_SYST 137
[2018-07-15] MEDS: BALSAM PERU/CASTOR OIL 60 GM OINT...G. TP SCH (09:00)
[2018-07-15] MEDS: SIMETHICONE 80 MG TAB.CHEW PO SCH ×3 (09:00→20:42)
[2018-07-15] MEDS: LISINOPRIL 10 MG TABLET (PRINIVIL) PO SCH (09:42)
[2018-07-15] MEDS: HYDROcodone/ACETAMIN 10-325 MG TAB PO PRN ×2 (09:42→21:16)
[2018-07-15 11:25] VITALS: BP_SYST 135
[2018-07-15 12:00] VITALS: BP_SYST 133
[2018-07-15] MEDS: GENTAMICIN 100 mg/50 mL NS 50 ML IV SCH (13:35)
[2018-07-15 16:45] VITALS: BP_SYST 123
[2018-07-15] MEDS: ENOXAPARIN SODIUM 30 MG/0.3 ML SYRINGE SUBCUT SCH (20:42)
[2018-07-16 07:12] LABS: CALCIUM 8.6 mg/dL (8.4-11.0); CREATININE 1.65 mg/dL (0.55-1.30)
[2018-07-16 07:22] LABS: ALBUMIN 2.2 g/dL (3.4-4.8); TOTAL BILIRUBIN 0.3 mg/dL (0.0-1.0)
[2018-07-16 08:00] VITALS: BP_SYST 123
[2018-07-16 08:25] LABS: POTASSIUM 5.2 mmol/L (3.5-5.1)
[2018-07-16] MEDS: LISINOPRIL 10 MG TABLET (PRINIVIL) PO SCH (09:00)
[2018-07-16] MEDS: SIMETHICONE 80 MG TAB.CHEW PO SCH ×3 (09:00→20:49)
[2018-07-16] MEDS: BALSAM PERU/CASTOR OIL 60 GM OINT...G. TP SCH (09:00)
[2018-07-16] MEDS: HYDROcodone/ACETAMIN 10-325 MG TAB PO PRN ×2 (11:33→23:13)
[2018-07-16 12:00] VITALS: BP_SYST 147
[2018-07-16] MEDS: GENTAMICIN 100 mg/50 mL NS 50 ML IV SCH (13:19)
[2018-07-16 14:00] VITALS: BP_SYST 123
[2018-07-16 16:59] VITALS: BP_SYST 123
[2018-07-16] MEDS: ENOXAPARIN SODIUM 30 MG/0.3 ML SYRINGE SUBCUT SCH (20:50)
[2018-07-16 20:56] VITALS: BP_SYST 132
[2018-07-17 08:00] VITALS: BP_SYST 130
[2018-07-17] MEDS: LISINOPRIL 10 MG TABLET (PRINIVIL) PO SCH (09:00)
[2018-07-17] MEDS: SIMETHICONE 80 MG TAB.CHEW PO SCH ×3 (09:00→20:22)
[2018-07-17] MEDS: BALSAM PERU/CASTOR OIL 60 GM OINT...G. TP SCH (10:00)
[2018-07-17 12:00] VITALS: BP_SYST 125
[2018-07-17] MEDS: GENTAMICIN 100 mg/50 mL NS 50 ML IV SCH (14:50)
[2018-07-17] MEDS: HYDROcodone/ACETAMIN 10-325 MG TAB PO PRN ×2 (14:50→20:30)
[2018-07-17 20:00] VITALS: BP_SYST 116
[2018-07-17] MEDS: ENOXAPARIN SODIUM 30 MG/0.3 ML SYRINGE SUBCUT SCH (20:18)
[2018-07-18] VITALS: BP_SYST 121
[2018-07-18 01:37] VITALS: BP_SYST 120
[2018-07-18] MEDS: HYDROcodone/ACETAMIN 10-325 MG TAB PO PRN ×2 (05:46→23:12)
[2018-07-18] MEDS: SIMETHICONE 80 MG TAB.CHEW PO SCH ×3 (09:00→21:00)
[2018-07-18] MEDS: LISINOPRIL 10 MG TABLET (PRINIVIL) PO SCH (09:00)
[2018-07-18 10:04] VITALS: BP_SYST 107
[2018-07-18] MEDS: BALSAM PERU/CASTOR OIL 60 GM OINT...G. TP SCH (10:07)
[2018-07-18 11:45] VITALS: BP_SYST 114
[2018-07-18] MEDS: GENTAMICIN 100 mg/50 mL NS 50 ML IV SCH (13:04)
[2018-07-18 16:00] VITALS: BP_SYST 142
[2018-07-18] MEDS: ENOXAPARIN SODIUM 30 MG/0.3 ML SYRINGE SUBCUT SCH (21:00)
[2018-07-19 00:34] VITALS: BP_SYST 133
[2018-07-19 09:26] VITALS: BP_SYST 138
[2018-07-19] MEDS: SIMETHICONE 80 MG TAB.CHEW PO SCH ×3 (09:28→21:00)
[2018-07-19] MEDS: HYDROcodone/ACETAMIN 10-325 MG TAB PO PRN ×2 (09:28→18:40)
[2018-07-19] MEDS: LISINOPRIL 10 MG TABLET (PRINIVIL) PO SCH (09:28)
[2018-07-19 12:00] VITALS: BP_SYST 129
[2018-07-19] MEDS: BALSAM PERU/CASTOR OIL 60 GM OINT...G. TP SCH (13:09)
[2018-07-19] MEDS: GENTAMICIN 100 mg/50 mL NS 50 ML IV SCH (13:09)
[2018-07-19 16:18] VITALS: BP_SYST 123
[2018-07-19] MEDS: ENOXAPARIN SODIUM 30 MG/0.3 ML SYRINGE SUBCUT SCH (21:00)
[2018-07-19 23:44] VITALS: BP_SYST 135
[2018-07-20 08:00] VITALS: BP_SYST 135
[2018-07-20] MEDS: BALSAM PERU/CASTOR OIL 60 GM OINT...G. TP SCH (09:54)
[2018-07-20] MEDS: HYDROcodone/ACETAMIN 10-325 MG TAB PO PRN ×3 (10:09→22:44)
[2018-07-20] MEDS: SIMETHICONE 80 MG TAB.CHEW PO SCH ×3 (10:09→21:00)
[2018-07-20] MEDS: LISINOPRIL 10 MG TABLET (PRINIVIL) PO SCH (10:10)
[2018-07-20 12:15] VITALS: BP_SYST 151
[2018-07-20] MEDS: GENTAMICIN 100 mg/50 mL NS 50 ML IV SCH (14:13)
[2018-07-20 16:53] VITALS: BP_SYST 152
[2018-07-20 19:30] VITALS: BP_SYST 126
[2018-07-20] MEDS: ENOXAPARIN SODIUM 30 MG/0.3 ML SYRINGE SUBCUT SCH (21:00)
[2018-07-20 23:50] VITALS: BP_SYST 118
[2018-07-21] MEDS: HYDROcodone/ACETAMIN 10-325 MG TAB PO PRN ×3 (06:40→20:35)
[2018-07-21 08:00] VITALS: BP_SYST 123
[2018-07-21] MEDS: SIMETHICONE 80 MG TAB.CHEW PO SCH ×4 (09:00→20:37)
[2018-07-21] MEDS: BALSAM PERU/CASTOR OIL 60 GM OINT...G. TP SCH (09:00)
[2018-07-21] MEDS: LISINOPRIL 10 MG TABLET (PRINIVIL) PO SCH (09:16)
[2018-07-21 12:17] VITALS: BP_SYST 133
[2018-07-21] MEDS: GENTAMICIN 100 mg/50 mL NS 50 ML IV SCH (12:57)
[2018-07-21 19:15] VITALS: BP_SYST 130
[2018-07-21] MEDS: ENOXAPARIN SODIUM 30 MG/0.3 ML SYRINGE SUBCUT SCH (20:37)
[2018-07-22] VITALS (7 sets, daily range): BP systolic 115–153
[2018-07-22] MEDS: HYDROcodone/ACETAMIN 10-325 MG TAB PO PRN ×4 (00:21→21:53)
[2018-07-22] MEDS: BALSAM PERU/CASTOR OIL 60 GM OINT...G. TP SCH (09:00)
[2018-07-22] MEDS: SIMETHICONE 80 MG TAB.CHEW PO SCH ×3 (09:00→21:00)
[2018-07-22] MEDS: LISINOPRIL 10 MG TABLET (PRINIVIL) PO SCH (09:33)
[2018-07-22] MEDS ORDERED: GENTAMICIN 100 mg/50 mL NS 50 ML IV SCH (12:58)
[2018-07-22] MEDS: GENTAMICIN 100 mg/50 mL NS 50 ML IV SCH (13:02)
[2018-07-22] MEDS ORDERED: LEVOFLOXACIN 250 MG/D5W 50 ML IV ONE (14:00)
[2018-07-22] MEDS: ENOXAPARIN SODIUM 30 MG/0.3 ML SYRINGE SUBCUT SCH (21:00)
[2018-07-23 08:00] VITALS: BP_SYST 142
[2018-07-23] MEDS: SIMETHICONE 80 MG TAB.CHEW PO SCH ×3 (09:00→20:47)
[2018-07-23] MEDS: LEVOFLOXACIN 250 MG/D5W 50 ML IV SCH (09:04)
[2018-07-23] MEDS: HYDROcodone/ACETAMIN 10-325 MG TAB PO PRN ×3 (10:27→19:51)
[2018-07-23] MEDS: LISINOPRIL 10 MG TABLET (PRINIVIL) PO SCH (10:27)
[2018-07-23] MEDS: BALSAM PERU/CASTOR OIL 60 GM OINT...G. TP SCH (10:28)
[2018-07-23] MEDS: GENTAMICIN 100 mg/50 mL NS 50 ML IV SCH (13:45)
[2018-07-23 19:00] VITALS: BP_SYST 135
[2018-07-23 20:00] VITALS: BP_SYST 135
[2018-07-23] MEDS: ENOXAPARIN SODIUM 30 MG/0.3 ML SYRINGE SUBCUT SCH (20:48)
[2018-07-24 00:50] VITALS: BP_SYST 122
[2018-07-24 08:00] VITALS: BP_SYST 107
[2018-07-24] MEDS: SIMETHICONE 80 MG TAB.CHEW PO SCH ×3 (09:00→21:00)
[2018-07-24] MEDS: LEVOFLOXACIN 250 MG/D5W 50 ML IV SCH (10:27)
[2018-07-24] MEDS: HYDROcodone/ACETAMIN 10-325 MG TAB PO PRN ×2 (10:28→23:06)
[2018-07-24] MEDS: LISINOPRIL 10 MG TABLET (PRINIVIL) PO SCH (10:28)
[2018-07-24] MEDS: BALSAM PERU/CASTOR OIL 60 GM OINT...G. TP SCH (10:31)
[2018-07-24] MEDS: GENTAMICIN 100 mg/50 mL NS 50 ML IV SCH (12:16)
[2018-07-24 14:04] LABS: ALBUMIN 2.7 g/dL (3.4-4.8); CALCIUM 8.7 mg/dL (8.4-11.0); CREATININE 1.97 mg/dL (0.55-1.30); TOTAL BILIRUBIN 0.4 mg/dL (0.0-1.0)
[2018-07-24 14:09] LABS: POTASSIUM 5.8 mmol/L (3.5-5.1)
[2018-07-24 16:59] VITALS: BP_SYST 120
[2018-07-24] MEDS: ENOXAPARIN SODIUM 30 MG/0.3 ML SYRINGE SUBCUT SCH (21:00)
[2018-07-25] MEDS: LEVOFLOXACIN 250 MG/D5W 50 ML IV SCH (09:18)
[2018-07-25] MEDS: SIMETHICONE 80 MG TAB.CHEW PO SCH ×3 (09:21→21:00)
[2018-07-25] MEDS: LISINOPRIL 10 MG TABLET (PRINIVIL) PO SCH (09:21)
[2018-07-25] MEDS: HYDROcodone/ACETAMIN 10-325 MG TAB PO PRN ×2 (09:22→15:19)
[2018-07-25 12:04] VITALS: BP_SYST 127
[2018-07-25 16:25] VITALS: BP_SYST 129
[2018-07-25 17:27] VITALS: BP_SYST 129
[2018-07-25] MEDS: BALSAM PERU/CASTOR OIL 60 GM OINT...G. TP SCH (18:04)
[2018-07-25 20:45] VITALS: BP_SYST 121
[2018-07-25] MEDS: ENOXAPARIN SODIUM 30 MG/0.3 ML SYRINGE SUBCUT SCH (21:00)
[2018-07-26] MEDS: HYDROcodone/ACETAMIN 10-325 MG TAB PO PRN ×3 (00:17→20:38)
[2018-07-26 07:08] LABS: ALBUMIN 2.6 g/dL (3.4-4.8); CALCIUM 9.1 mg/dL (8.4-11.0); CREATININE 2.15 mg/dL (0.55-1.30); POTASSIUM 5.2 mmol/L (3.5-5.1); TOTAL BILIRUBIN 0.4 mg/dL (0.0-1.0)
[2018-07-26] MEDS: LISINOPRIL 10 MG TABLET (PRINIVIL) PO SCH (09:00)
[2018-07-26] MEDS: SIMETHICONE 80 MG TAB.CHEW PO SCH ×3 (09:00→20:40)
[2018-07-26] MEDS: BALSAM PERU/CASTOR OIL 60 GM OINT...G. TP SCH (09:00)
[2018-07-26] MEDS: LEVOFLOXACIN 250 MG/D5W 50 ML IV SCH (09:12)
[2018-07-26 09:31] VITALS: BP_SYST 151
[2018-07-26 12:00] VITALS: BP_SYST 137
[2018-07-26] MEDS ORDERED: ONDANSETRON HCL 4 MG/2 ML VIAL IVP ONE (12:30)
[2018-07-26] MEDS: GENTAMICIN 100 mg/50 mL NS 50 ML IV SCH (12:35)
[2018-07-26 16:18] VITALS: BP_SYST 145
[2018-07-26] MEDS: ENOXAPARIN SODIUM 30 MG/0.3 ML SYRINGE SUBCUT SCH (20:41)
[2018-07-27 00:03] VITALS: BP_SYST 135
[2018-07-27 08:00] VITALS: BP_SYST 127
[2018-07-27] MEDS: HYDROcodone/ACETAMIN 10-325 MG TAB PO PRN ×3 (09:03→21:29)
[2018-07-27] MEDS: LEVOFLOXACIN 250 MG/D5W 50 ML IV SCH (09:03)
[2018-07-27] MEDS: LISINOPRIL 10 MG TABLET (PRINIVIL) PO SCH (09:03)
[2018-07-27] MEDS: SIMETHICONE 80 MG TAB.CHEW PO SCH ×3 (09:03→21:00)
[2018-07-27] MEDS: BALSAM PERU/CASTOR OIL 60 GM OINT...G. TP SCH (09:04)
[2018-07-27 12:03] VITALS: BP_SYST 147
[2018-07-27 16:33] VITALS: BP_SYST 135
[2018-07-27] MEDS: ENOXAPARIN SODIUM 30 MG/0.3 ML SYRINGE SUBCUT SCH (21:00)
[2018-07-28 00:45] VITALS: BP_SYST 125
[2018-07-28] MEDS: HYDROcodone/ACETAMIN 10-325 MG TAB PO PRN ×4 (02:49→17:37)
[2018-07-28 07:19] LABS: ALBUMIN 2.7 g/dL (3.4-4.8); CALCIUM 9.1 mg/dL (8.4-11.0); CREATININE 2.48 mg/dL (0.55-1.30); POTASSIUM 4.8 mmol/L (3.5-5.1); TOTAL BILIRUBIN 0.3 mg/dL (0.0-1.0)
[2018-07-28 08:00] VITALS: BP_SYST 117
[2018-07-28] MEDS: LEVOFLOXACIN 250 MG/D5W 50 ML IV SCH (08:28)
[2018-07-28] MEDS: LISINOPRIL 10 MG TABLET (PRINIVIL) PO SCH (08:29)
[2018-07-28] MEDS: SIMETHICONE 80 MG TAB.CHEW PO SCH ×3 (08:29→21:00)
[2018-07-28] MEDS: BALSAM PERU/CASTOR OIL 60 GM OINT...G. TP SCH (09:00)
[2018-07-28] MEDS: GENTAMICIN 100 mg/50 mL NS 50 ML IV SCH (13:15)
[2018-07-28 16:00] VITALS: BP_SYST 135
[2018-07-28] MEDS: ENOXAPARIN SODIUM 30 MG/0.3 ML SYRINGE SUBCUT SCH (21:00)
[2018-07-29] MEDS: HYDROcodone/ACETAMIN 10-325 MG TAB PO PRN ×3 (01:21→20:21)
[2018-07-29 01:30] VITALS: BP_SYST 145
[2018-07-29 08:00] VITALS: BP_SYST 140
[2018-07-29] MEDS: SIMETHICONE 80 MG TAB.CHEW PO SCH ×4 (08:30→21:00)
[2018-07-29] MEDS: LISINOPRIL 10 MG TABLET (PRINIVIL) PO SCH (08:43)
[2018-07-29] MEDS: BALSAM PERU/CASTOR OIL 60 GM OINT...G. TP SCH (09:00)
[2018-07-29] MEDS: LEVOFLOXACIN 250 MG/D5W 50 ML IV SCH (10:41)
[2018-07-29 12:00] VITALS: BP_SYST 132
[2018-07-29 16:57] VITALS: BP_SYST 154
[2018-07-29 19:20] VITALS: BP_SYST 138
[2018-07-29] MEDS: ENOXAPARIN SODIUM 30 MG/0.3 ML SYRINGE SUBCUT SCH (21:00)
[2018-07-30] VITALS: BP_SYST 175
[2018-07-30] MEDS: SIMETHICONE 80 MG TAB.CHEW PO SCH ×3 (08:56→21:00)
[2018-07-30] MEDS: HYDROcodone/ACETAMIN 10-325 MG TAB PO PRN ×2 (08:58→12:53)
[2018-07-30] MEDS: LISINOPRIL 10 MG TABLET (PRINIVIL) PO SCH (08:58)
[2018-07-30] MEDS: LEVOFLOXACIN 250 MG/D5W 50 ML IV SCH (08:58)
[2018-07-30] MEDS: BALSAM PERU/CASTOR OIL 60 GM OINT...G. TP SCH (08:58)
[2018-07-30 09:00] VITALS: BP_SYST 142
[2018-07-30] MEDS: GENTAMICIN 100 mg/50 mL NS 50 ML IV SCH (12:51)
[2018-07-30 20:00] VITALS: BP_SYST 151
[2018-07-30] MEDS: ENOXAPARIN SODIUM 30 MG/0.3 ML SYRINGE SUBCUT SCH (21:00)
[2018-07-31 00:20] VITALS: BP_SYST 124
[2018-07-31 08:00] VITALS: BP_SYST 143
[2018-07-31] MEDS: SIMETHICONE 80 MG TAB.CHEW PO SCH ×3 (09:00→21:00)
[2018-07-31] MEDS: BALSAM PERU/CASTOR OIL 60 GM OINT...G. TP SCH (09:00)
[2018-07-31] MEDS: LEVOFLOXACIN 250 MG/D5W 50 ML IV SCH (09:28)
[2018-07-31] MEDS: LISINOPRIL 10 MG TABLET (PRINIVIL) PO SCH (09:29)
[2018-07-31 09:36] LABS: CALCIUM 9.4 mg/dL (8.4-11.0); CREATININE 2.57 mg/dL (0.55-1.30); POTASSIUM 4.8 mmol/L (3.5-5.1); TOTAL BILIRUBIN 0.4 mg/dL (0.0-1.0)
[2018-07-31] MEDS: HYDROcodone/ACETAMIN 10-325 MG TAB PO PRN ×2 (15:34→22:12)
[2018-07-31 16:42] VITALS: BP_SYST 139
[2018-07-31] MEDS: ENOXAPARIN SODIUM 30 MG/0.3 ML SYRINGE SUBCUT SCH (21:00)
[2018-08-01 08:10] VITALS: BP_SYST 137
[2018-08-01] MEDS: SIMETHICONE 80 MG TAB.CHEW PO SCH ×3 (09:00→20:13)
[2018-08-01] MEDS: LEVOFLOXACIN 250 MG/D5W 50 ML IV SCH (09:17)
[2018-08-01] MEDS: BALSAM PERU/CASTOR OIL 60 GM OINT...G. TP SCH (09:18)
[2018-08-01] MEDS: LISINOPRIL 10 MG TABLET (PRINIVIL) PO SCH (09:18)
[2018-08-01] MEDS: HYDROcodone/ACETAMIN 10-325 MG TAB PO PRN ×2 (09:45→22:16)
[2018-08-01 12:15] VITALS: BP_SYST 136
[2018-08-01 16:46] VITALS: BP_SYST 129
[2018-08-01] MEDS: ENOXAPARIN SODIUM 30 MG/0.3 ML SYRINGE SUBCUT SCH (20:13)
[2018-08-02] MEDS: HYDROcodone/ACETAMIN 10-325 MG TAB PO PRN ×2 (04:41→10:04)
[2018-08-02 08:00] VITALS: BP_SYST 119
[2018-08-02] MEDS: SIMETHICONE 80 MG TAB.CHEW PO SCH ×3 (09:00→21:00)
[2018-08-02] MEDS: LEVOFLOXACIN 250 MG/D5W 50 ML IV SCH (09:47)
[2018-08-02] MEDS: BALSAM PERU/CASTOR OIL 60 GM OINT...G. TP SCH (09:51)
[2018-08-02] MEDS: LISINOPRIL 10 MG TABLET (PRINIVIL) PO SCH (10:03)
[2018-08-02 13:06] VITALS: BP_SYST 151
[2018-08-02 18:12] VITALS: BP_SYST 172
[2018-08-02] MEDS: ENOXAPARIN SODIUM 30 MG/0.3 ML SYRINGE SUBCUT SCH (21:00)
[2018-08-03] MEDS: HYDROcodone/ACETAMIN 10-325 MG TAB PO PRN ×2 (05:23→21:52)
[2018-08-03 06:44] LABS: BASOPHILS % (AUTO) 0.2 % (0.0-2.0); CALCIUM 9.2 mg/dL (8.4-11.0); CREATININE 2.76 mg/dL (0.55-1.30); EOSINOPHILS # (AUTO) 0.7 K/uL (0.0-0.4); EOSINOPHILS % (AUTO) 7.5 % (0.0-4.0); HEMATOCRIT 29.1 % (36-54); HEMOGLOBIN 9.7 g/dL (14.0-18.0); LYMPHOCYTES # (AUTO) 1.4 K/uL (1.0-5.5); LYMPHOCYTES % (AUTO) 16.3 % (20.5-51.5); MEAN CORPUSCULAR HEMOGLOBIN 31 pg (27-31); MEAN CORPUSCULAR HGB CONC 33 % (32-36); MEAN CORPUSCULAR VOLUME 93 fL (79.0-98.0); MONOCYTES # (AUTO) 0.6 K/uL (0.0-1.0); MONOCYTES % (AUTO) 7.2 % (1.7-9.3); NEUTROPHILS % (AUTO) 68.8 % (40.0-70.0); PLATELET COUNT (AUTO) 235 K/uL (130-430); POTASSIUM 4.7 mmol/L (3.5-5.1); RED BLOOD CELL COUNT(AUTO) 3.14 MIL/uL (4.2-6.2); RED CELL DISTRIBUTION WIDTH 12.9 % (9.0-15.0); WHITE BLOOD COUNT (AUTO) 8.7 K/uL (4.8-10.8)
[2018-08-03 08:00] VITALS: BP_SYST 113
[2018-08-03] MEDS: LEVOFLOXACIN 250 MG/D5W 50 ML IV SCH (08:26)
[2018-08-03] MEDS: BALSAM PERU/CASTOR OIL 60 GM OINT...G. TP SCH (08:27)
[2018-08-03] MEDS: SIMETHICONE 80 MG TAB.CHEW PO SCH ×3 (08:42→20:56)
[2018-08-03] MEDS: LISINOPRIL 10 MG TABLET (PRINIVIL) PO SCH (08:43)
[2018-08-03 12:50] VITALS: BP_SYST 158
[2018-08-03 20:00] VITALS: BP_SYST 135
[2018-08-03] MEDS: ENOXAPARIN SODIUM 30 MG/0.3 ML SYRINGE SUBCUT SCH (20:57)
[2018-08-04] MEDS: BALSAM PERU/CASTOR OIL 60 GM OINT...G. TP SCH (09:00)
[2018-08-04] MEDS: LISINOPRIL 10 MG TABLET (PRINIVIL) PO SCH (09:00)
[2018-08-04] MEDS: SIMETHICONE 80 MG TAB.CHEW PO SCH ×3 (09:00→21:00)
[2018-08-04] MEDS: LEVOFLOXACIN 250 MG/D5W 50 ML IV SCH (09:21)
[2018-08-04] MEDS: HYDROcodone/ACETAMIN 10-325 MG TAB PO PRN (15:32)
[2018-08-04 20:54] VITALS: BP_SYST 111
[2018-08-04] MEDS: ENOXAPARIN SODIUM 30 MG/0.3 ML SYRINGE SUBCUT SCH (21:00)
[2018-08-05] MEDS: HYDROcodone/ACETAMIN 10-325 MG TAB PO PRN ×2 (02:53→19:35)
[2018-08-05] MEDS: BALSAM PERU/CASTOR OIL 60 GM OINT...G. TP SCH (09:00)
[2018-08-05 09:03] VITALS: BP_SYST 108
[2018-08-05] MEDS: SIMETHICONE 80 MG TAB.CHEW PO SCH ×3 (09:51→20:39)
[2018-08-05] MEDS: LEVOFLOXACIN 250 MG/D5W 50 ML IV SCH (09:51)
[2018-08-05] MEDS: LISINOPRIL 10 MG TABLET (PRINIVIL) PO SCH (09:51)
[2018-08-05 20:10] VITALS: BP_SYST 159
[2018-08-05] MEDS: ENOXAPARIN SODIUM 30 MG/0.3 ML SYRINGE SUBCUT SCH (20:39)
[2018-08-06] MEDS ORDERED: VANCOMYCIN HCL 1000 MG/VIAL IV ONE (05:44)
[2018-08-06] MEDS ORDERED: VANCOMYCIN HCL 1 GM/NS PREMIX 250 ML IV SCH (06:30)
[2018-08-06] MEDS: LISINOPRIL 10 MG TABLET (PRINIVIL) PO SCH (09:00)
[2018-08-06] MEDS: SIMETHICONE 80 MG TAB.CHEW PO SCH ×3 (09:00→20:58)
[2018-08-06] MEDS: LEVOFLOXACIN 250 MG/D5W 50 ML IV SCH (09:24)
[2018-08-06] MEDS: BALSAM PERU/CASTOR OIL 60 GM OINT...G. TP SCH (09:25)
[2018-08-06] MEDS: HYDROcodone/ACETAMIN 10-325 MG TAB PO PRN (14:29)
[2018-08-06 16:07] VITALS: BP_SYST 144
[2018-08-06] MEDS: ENOXAPARIN SODIUM 30 MG/0.3 ML SYRINGE SUBCUT SCH (20:58)
[2018-08-07] MEDS: HYDROcodone/ACETAMIN 10-325 MG TAB PO PRN ×3 (06:47→21:03)
[2018-08-07 08:00] VITALS: BP_SYST 148
[2018-08-07 08:28] LABS: ALBUMIN 3.1 g/dL (3.4-4.8); CALCIUM 9.3 mg/dL (8.4-11.0); CREATININE 2.76 mg/dL (0.55-1.30); POTASSIUM 4.7 mmol/L (3.5-5.1); TOTAL BILIRUBIN 0.6 mg/dL (0.0-1.0)
[2018-08-07] MEDS: LISINOPRIL 10 MG TABLET (PRINIVIL) PO SCH (09:00)
[2018-08-07] MEDS: SIMETHICONE 80 MG TAB.CHEW PO SCH ×3 (09:00→21:03)
[2018-08-07] MEDS: LEVOFLOXACIN 250 MG/D5W 50 ML IV SCH (10:08)
[2018-08-07] MEDS: BALSAM PERU/CASTOR OIL 60 GM OINT...G. TP SCH (10:08)
[2018-08-07 12:00] VITALS: BP_SYST 143
[2018-08-07] MEDS: VANCOMYCIN HCL 1,000 MG in NS 250 ML IV SCH (15:23)
[2018-08-07 16:00] VITALS: BP_SYST 135
[2018-08-07] MEDS: ENOXAPARIN SODIUM 30 MG/0.3 ML SYRINGE SUBCUT SCH (21:00)
[2018-08-08 08:00] VITALS: BP_SYST 137
[2018-08-08] MEDS: LEVOFLOXACIN 250 MG/D5W 50 ML IV SCH (08:58)
[2018-08-08] MEDS: SIMETHICONE 80 MG TAB.CHEW PO SCH ×2 (08:59→15:00)
[2018-08-08] MEDS: LISINOPRIL 10 MG TABLET (PRINIVIL) PO SCH (08:59)
[2018-08-08] MEDS: HYDROcodone/ACETAMIN 10-325 MG TAB PO PRN (08:59)
[2018-08-08] MEDS: BALSAM PERU/CASTOR OIL 60 GM OINT...G. TP SCH (09:01)
[2018-08-08 12:00] VITALS: BP_SYST 131; BP_SYST 99
[2018-08-08] MEDS: VANCOMYCIN HCL 1,000 MG in NS 250 ML IV SCH (14:00)
[2018-08-08 14:24] VITALS: BP_SYST 129
[2018-08-08 16:36] VITALS: BP_SYST 132
== END 2018-08-08 16:35 | DRG 622 ==
LOC: SED 14:11 → SMU 16:24
PROVIDERS: ADMIT Family Medicine; ATTEND Family Medicine
PROC: 02HV33Z Insertion of Infusion Device into Superior Vena Cava, Percutaneous Approach (ICD-10-PCS; 2018-06-21)
PROC: B548ZZA Ultrasonography of Superior Vena Cava, Guidance (ICD-10-PCS; 2018-06-21)
PROC: 0JBL0ZZ Excision of Right Upper Leg Subcutaneous Tissue and Fascia, Open Approach (ICD-10-PCS; 2018-06-25)
PROC: 0JB70ZZ Excision of Back Subcutaneous Tissue and Fascia, Open Approach (ICD-10-PCS; 2018-06-25)
PROC: 0JBM0ZZ Excision of Left Upper Leg Subcutaneous Tissue and Fascia, Open Approach (ICD-10-PCS; principal; 2018-06-25 13:30)
PROC: 0D1N0Z4 Bypass Sigmoid Colon to Cutaneous, Open Approach (ICD-10-PCS; 2018-06-28)
PROC: 0JBM0ZZ Excision of Left Upper Leg Subcutaneous Tissue and Fascia, Open Approach (ICD-10-PCS; 2018-07-05)
PROC: 0JB70ZZ Excision of Back Subcutaneous Tissue and Fascia, Open Approach (ICD-10-PCS; 2018-07-05)
DX: E11.69 Type 2 diabetes mellitus with other specified complication (principal); L89.154 Pressure ulcer of sacral region, stage 4; E43 Unspecified severe protein-calorie malnutrition; L89.224 Pressure ulcer of left hip, stage 4; L89.214 Pressure ulcer of right hip, stage 4; M46.28 Osteomyelitis of vertebra, sacral and sacrococcygeal region; E87.1 Hypo-osmolality and hyponatremia; N39.0 Urinary tract infection, site not specified; R53.2 Functional quadriplegia; N17.9 Acute kidney failure, unspecified; I12.9 Hypertensive chronic kidney disease with stage 1 through stage 4 chronic kidney disease, or unspecified chronic kidney disease; E11.22 Type 2 diabetes mellitus with diabetic chronic kidney disease; N18.9 Chronic kidney disease, unspecified; K80.20 Calculus of gallbladder without cholecystitis without obstruction; G89.29 Other chronic pain; B96.89 Other specified bacterial agents as the cause of diseases classified elsewhere; D64.9 Anemia, unspecified; K59.09 Other constipation; Z59.0 Homelessness; Z68.21 Body mass index [BMI] 21.0-21.9, adult; Z89.512 Acquired absence of left leg below knee
CPT/HCPCS: 36415; 71045; 80048; 80053; 80150; 80170-TC; 80202-TC; 81000-TC; 82962; 83605; 84484; 85025; 85610-TC; 85651-TC; 85730-TC; 86886; 86900; 86901; 87040-TC; 87070-TC; 87081; 87086; 87186-TC; 88304; 93005; 94010; 96361; 96365; 96367; 96375; 97110-GP; 97530-GP; 99285; A4409; A5061; A6550; C1751; J0278; J0692; J1580; J1650; J1815; J1956; J2185; J2250; J2270; J2370; J2405; J2543; J2704; J2710; J3010; J3370; J3490; J7030; J7050; J7060; J7120